=== PATIENT | male | born 1990 | race Caucasian/White ===

== ENCOUNTER → 2024-11-28 12:22 | Outpatient (ROUT) | payer BC, SELFPAY | LOC: LAB 12:23 | DX: D37.01 Neoplasm of uncertain behavior of lip (principal) | CPT/HCPCS: 87252 ==

== ENCOUNTER 2025-02-27 13:45 | Outpatient (RCR) | payer OTHER, SELFPAY ==
--- NOTE | 2025-01-13 16:29 | ST.OPIE ---
Visit Care Team Role Provider Type Dylan Barrett DO Primary Care Provider Non-Staff Specialty: Family Practice Address: [address], [place], [address] Email: Family Provider Specialty: Address: Phone: Fax: Email: Megan Jaime MD Attending Provider Physician Referring Provider Specialty: Dermatology Address: [address] [place] [address], [id number] Email: Speech-Language Pathology Initial Evaluation ROUTE SALES PERSON Motor Speech Evaluation Start: 01/13/25 15:13 Freq: Status: Active Protocol: Document 01/13/25 15:14 SS (Rec: 01/13/25 15:16 SS Desktop) Motor Speech Evaluation Session Time Visit Start Time 14:15 Visit Stop Time 14:45 Total Visit Minutes 30 Visit Information Visit Number 07/08 Plan of Care Dates 01/13/25-04/15/25 Insurance [employer] Preferred Information Setting Setting Outpatient Care Next Note Type Next Note Type Treatment Note Patient History Source: [employer] (JOSE ROBERT[employer]). 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 No significant prior medical history per pt report. 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 Plan for pt to begin course of radiation next week, though he is currently seeking a second opinion. Pt reported no changes to swallowing function. He endorsed mild dysarthria that has been improving, but is concerned it will worsen when he begins radiation treatment. 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 Referral Referring Physician Dr. Amparo Jaime Ph.D., M.D., [facility] Reason for Referral Dysarthria Mental Status Mental Status Alert,Responsive,Cooperative Subjective Observations Subjective Pt arrived to the session on time. He was motivated to participate and provided his case history. Oral Motor Lips Function Mild Impairment Observation at rest Intact b/l Pucker Intact b/l Retraction Intact b/l Alternating pucker/ Mildly reduced ROM and strength on left retraction Involuntary Movement None Tongue Function WNL Jaw Function WNL Soft Palate Function WNL Respiration/Phonation Diadochokinetic Rates P^ Duration per 3 sec. 15.6 reps Quality WNL T^ Duration per 3 sec. 15 reps Quality WNL K^ Duration per 3 sec. 16.8 reps Quality WNL P^T^K^ Duration per 3 sec. 10.2 reps Quality WNL Speech Intelligibility Standardized Tests Assessment Name(s) Conversation Phoneme Severity WNL Word Severity WNL Sentence Severity WNL Conversation Severity Mildly Impaired Awareness/Strategy Use Findings Details Motor Speech Mild Impairment Function Assessment Details Assessment Speech/voice evaluation results A motor speech and voice examination was administered to assess components of the pt?s motor speech system including respiration, phonation, articulation, resonance, and prosody. In addition, an oral mechanism exam was completed, and five salient features of neuromuscular function were also evaluated which include muscle strength, speech of movement, range of motion, and muscle tone. Pt also completed the Voice Handicap Index, measuring self-perception of voice. Cognitive-communication skills were assessed informally throughout the evaluation. Respiration Respiration was assessed by observing the pt?s breathing during speech tasks. Breath support was adequate during reading and functional speaking tasks. Phonation Loudness: adequate volume in conversation and during structured tasks. Pitch: WNL pitch range Quality: clear Maximum Phonation Time (MPT): 15.37 seconds = Below Average; Typically with no laryngeal pathology, adult males can sustain vowel sounds for between 22.6-34.6 seconds (Ifeanyi et al., 1987). MPT is the maximum time in seconds for which a person can sustain a vowel sound /a/ when produced on one deep breath at a relatively comfortable pitch and loudness. MPT is not a diagnostic of laryngeal pathology; however, is useful as an indicator of laryngeal pathology. To obtain the pt?s MPT, the pt was asked to take a deep breath and sustain the vowel sound ?ah? for as long as possible at a comfortable pitch and loudness on one exhalation, without straining. The best of three attempts at sustaining the vowel sound was used as the pt?s MPT. S/Z Ratio: 11.34/16.67 = 0.7 Below Average; Average = ~ 20-25 seconds for both phonemes equaling a ratio of 1. The /z/ shorter than /s/ = laryngeal impairment. Both / s/ and /z/ reduced = respiratory impairment. 1.4 or less is WNL (Isidoro & Sebastián, 1981). The s/z ratio is an assessment tool used as an indicator of potential laryngeal pathology. Using the s /z ratio, the pt is asked to sustain the ?s? sound ( voiceless) and the ?z? sound (voiced). These two values are then divided to obtain a numerical ration. The higher the figure, the greater the possibility that the person is experiencing difficulty with phonation. Articulation Articulation was assessed during diadochokinetic drills with Sequential Motion Rate (SMR) and Alternating Motion Rate (AMR) exercises, as well as during tasks of repetition and spontaneous speech. AMR testing, which is composed of rapid repetition of single consonant-vowel combination, exposed WNL rate, volume, and precision. During the SMR testing, which is a compilation of three consonant-vowel combinations produced sequentially, pt displayed WNL rate, volume, and precision. Puh = 5.2/second - Average Tuh = 5.0/second - Average Kuh = 5.6/second - Average Puh, Tuh, Kuh = 3.4/second - Average Articulation mildly reduced at the conversation level. Resonance Hyponasality and hypernasality were assessed by having the pt repeat two sentences with and without the nares occluded. Pt?s speech presented with neither. Prosody Prosody was assessed throughout the evaluation during various speaking tasks. Pt demonstrated good ability to vary stress and intonation and imitate different stress patterns produced by the ROUTE SALES PERSON. FEATURES OF NEUROMUSCULAR FUNCTION Muscle Strength: Demonstrated adequate labial and lingual strength during resistance tasks Speed of Movement: At the conversation level, speed of movement is judged to be adequate. Accuracy of Movement: In regards to speech production, accuracy is mildly reduced, particularly with labial phonemes (/p/, /b/). Range of Motion: ROM within normal limits. Muscle Tone: Muscle tone of all speech related musculature appeared adequate CRANIAL NERVE EXAM CN V (Trigeminal): Intact b/l CN VII (Facial): Intact b/l CN IX/X (Glossopharyngeal/Vagus): Intact b/l CN XII (Hypoglossal): Intact b/l VISUAL ANALOGUE SCALE The pt was asked to rate his perception of his voice on a visual analogue scale from 1-10, with 1 being ? unable to speak? and 10 being ?speech/voice prior to surgery.? The pt rated his current speech/voice to be an 8.5/10. 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 Pt?s mild dysarthria is characterized by mildly reduced precision with labial phonemes at the conversation level. Pt reports his speech function is very close to baseline and continues to improve, but has concerns about changes with upcoming radiation. Prognosis for improvement is good for stated goals pending cooperation and motivation. Improvement will be contingent upon pt compliance to the following recommendations. Prognosis Rehabilitation Excellent Potential Recommendations Treatment Yes Recommended Frequency 2-4 times a month Duration 2-3 months Therapy Recommendations are for speech therapy treatment for 5- Recommendations 6 visits to improve functional communication during activities of daily living, for the most independence, and best quality of life. Focus should be on increasing overall intelligibility in every day functional communication. Pt in agreement with these recommendations. 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 Patient will independently implement at least two compensatory speech strategies to increase speech intelligibility in conversation. 2. Patient will complete HEP for speech strategies for dysarthria to increase overall speech intelligibility per pt?s report. Pediatric Critical Care Nurse Goals 1. Patient will improve self-perception of speech/voice from a baseline of 8.5/10 following education and training in compensatory strategies. Patient/Family Education Education Described results of evaluation,Patient Understanding
--- NOTE | 2025-01-13 16:29 | ST.OPPOC ---
Physical, Occupational & Speech Therapy At [facility] Visit Care Team Role Provider Type Dylan Barrett DO Primary Care Provider Non-Staff Address: [address], [place], [address] Family Provider Address: Phone: Fax: Megan Jaime MD Attending Provider Physician Referring Provider Address: [address] [place] [address], [address] Speech Pathology Plan of Care Plan of Care Dates 01/13/25-04/15/[address] 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 No significant prior medical history per pt report. 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 Plan for pt to begin course of radiation next week, though he is currently seeking a second opinion. Pt reported no changes to swallowing function. He endorsed mild dysarthria that has been improving, but is concerned it will worsen when he begins radiation treatment. 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 Patient will independently implement at least two compensatory speech strategies to increase speech intelligibility in conversation. 2. Patient will complete HEP for speech strategies for dysarthria to increase overall speech intelligibility per pt?s report. Skilled Nursing Goals 1. Patient will improve self-perception of speech/voice from a baseline of 8.5/10 following education and training in compensatory strategies. Comment: Electronically Signed by: YAMILETH Alexander 01/13/25 4881 If you are in agreement with this Plan of Care, please return a signed and dated copy. I have reviewed this Plan of Care and certify that the skilled therapy services above are required to meet the patient?s needs. Physician Signature Date Printed Name and Credentials Clinical Instructor Signature Printed Name and Credentials
--- NOTE | 2025-01-13 16:33 | ST-OP ANOTE ---
Physical, Occupational & Speech Therapy At [facility] Speech Therapy Note POC sent to pt's PCP requesting signature if in agreement. PROPERTY CONTROLLER to follow up as needed.
--- NOTE | 2025-01-28 15:46 | ST.OPTN ---
Visit Care Team Role Provider Type Dylan Barrett DO Primary Care Provider Non-Staff Address: [address], [place], [address] Family Provider Address: Phone: Fax: Megan Jaime MD Attending Provider Physician Referring Provider Address: [facility] [place], [address] WEB MARKETING STRATEGIST Treatment Note WEB MARKETING STRATEGIST Treatment Note Start: 01/13/25 15:13 Freq: Status: Active Protocol: Document 01/28/25 15:24 SS (Rec: 01/28/25 15:46 SS Desktop) Speech Pathology Treatment Note Session Time Visit Start Time 12:15 Visit Stop Time 12:45 Total Visit Minutes 30 Visit Information Visit Number 2 Plan of Care Dates 01/13/25-04/15/25 Insurance [employer] Preferred Information Setting Treatment Setting Outpatient Care Visit Type Note Type Treatment Note Next Note Type Next Note Type Treatment Note General Information Patient History Vinh Etienne is a 34-year-old male referred for speech therapy evaluation due to concerns regarding dysarthria in the setting of 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 No significant prior medical history per pt report. 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 Plan for pt to begin course of radiation next week, though he is currently seeking a second opinion. Pt reported no changes to swallowing function. He endorsed mild dysarthria that has been improving, but is concerned it will worsen when he begins radiation treatment. His main goal for treatment is to maintain his speech quality and continue to work in [employer]. Subjective Identification Type Name Observations/Patient Pt arrived to the session on time. He was engaged and Presentation motivated throughout. Objective Short Term Goals 1. Patient will independently implement at least two compensatory speech strategies to increase speech intelligibility in conversation. 2. Patient will complete HEP for speech strategies for dysarthria to increase overall speech intelligibility per pt?s report. Prison Goals 1. Patient will improve self-perception of speech/voice from a baseline of 8.5/10 following education and training in compensatory strategies. Treatment Activities Education re: compensatory strategies for dysarthria and implementation of selected strategies during tongue twisters and in conversation. WEB MARKETING STRATEGIST provided recommendations on increasing speech clarity during sport broadcasting given pt questions. Discussed current medical management and POC and provided home practice. Assessment Patient Response to Good Treatment Rehab Potential Good Impairments Speech Identified Progress Towards Good Progress Goals Assessment of Improving Overall Progress Assessment of Facilitated conversation re: pt?s speech. Pt reported Improvement he had a soccer broadcast last week and thought his speech was fairly clear. He has been focusing on his speech and been cognizant of using speech strategies provided in last session at home and at work. He has had several additional consultations: re: radiology and decided not to pursue it. He had a biopsy of his lip done last week and may have another surgery, though is not certain. Given prompt, pt independently recalled speech clarity strategies for dysarthria provided in last session, identifying the following: speak in 3-5 word phrases, use a slower rate, exaggerate all sounds or syllables, and repeat or rephrase if listener does not understand. Recommended and provided modeling and verbal explanation of additional strategies including emphasizing labial sounds (ex: /p/, /b/, /m/), lengthening sounds that are challenging (?th? and /f/) to make them sound different from others, and saying one word at a time. 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 Also recommended pt record himself practicing broadcasting using the strategies to make modifications based on the recording. Pt in agreement with these recommendations. Tongue twister exercise implemented to target dysarthria to improve articulatory precision. Pt completed 20 tongue twisters while using the above strategies. He was able to produce 90% of them accurately, increasing to 100% given prompt to self- assess productions and re-try as needed. Recommended pt read the tongue twisters with use of compensatory strategies as part of HEP, which pt expressed understanding of. Pt participated throughout the session. He was receptive to education and recommendations provided. Will continue to target use of compensatory strategies for dysarthria in next session given pt progress with HEP. Plan to follow up in 2 weeks. Reviewed with Goals,Progress Being Made,Home Exercise Program Patient Patient/Caregiver Excellent Understanding Plan Amount of Therapy 2-3 Months Recommended Frequency of Once a Week Treatment Comment 2-4 times a month Length of Session 30 Minutes Therapeutic Contents Articulation Training,Client Education,Home Exercise Program,Intelligibility Provided Patient/ Home Exercise Program,Plan of Care,Questions/Concerns Caregiver Instruction Therapy Continue with Current Program Recommendations
--- NOTE | 2025-02-27 14:24 | ST.OPTN ---
Visit Care Team Role Provider Type Dylan Barrett DO Primary Care Provider Non-Staff Address: [address], [place], [address] Family Provider Address: Phone: Fax: Megan Jaime MD Attending Provider Physician Referring Provider Address: [address] [facility], [address] WATCH SUPERVISOR Treatment Note WATCH SUPERVISOR Treatment Note Start: 01/13/25 15:13 Freq: Status: Active Protocol: Document 02/27/25 14:17 MA (Rec: 02/27/25 14:24 MA Desktop) Speech Pathology Treatment Note Session Time Visit Start Time 13:45 Visit Stop Time 14:15 Total Visit Minutes 30 Visit Information Visit Number 3 Plan of Care Dates 01/13/25-04/15/25 Insurance [employer] Preferred Information Setting Treatment Setting Outpatient Care Visit Type Note Type Treatment Note Next Note Type Next Note Type Treatment Note General Information Patient History Vinh Etienne is a 34-year-old male referred for speech therapy evaluation due to concerns regarding dysarthria in the setting of 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 No significant prior medical history per pt report. 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 Plan for pt to begin course of radiation next week, though he is currently seeking a second opinion. Pt reported no changes to swallowing function. He endorsed mild dysarthria that has been improving, but is concerned it will worsen when he begins radiation treatment. His main goal for treatment is to maintain his speech quality and continue to work in [employer]. Subjective Identification Type Name Observations/Patient Pt arrived to the session on time. He was engaged and Presentation motivated throughout. Objective Short Term Goals 1. Patient will independently implement at least two compensatory speech strategies to increase speech intelligibility in conversation. 2. Patient will complete HEP for speech strategies for dysarthria to increase overall speech intelligibility per pt?s report. Senior Living Goals 1. Patient will improve self-perception of speech/voice from a baseline of 8.5/10 following education and training in compensatory strategies. Treatment Activities Education re: compensatory strategies for dysarthria and implementation of selected strategies during conversation. WATCH SUPERVISOR provided recommendations on increasing speech clarity during sport broadcasting given pt questions. Discussed current medical management and POC. Assessment Patient Response to Good Treatment Rehab Potential Good Impairments Speech Identified Progress Towards Good Progress Goals Assessment of Improving Overall Progress Assessment of Facilitated conversation re: pt?s speech. Pt reported Improvement he challenged himself last week and broadcasted up to 9 games and reports his speech sounded clear. He has been focusing on his speech and been cognizant of using speech strategies provided in last session at home and at work. Given prompt, pt independently recalled speech clarity strategies for dysarthria provided in last session, identifying the following: speak in 3-5 word phrases, use a slower rate, exaggerate all sounds or syllables, and repeat or rephrase if listener does not understand Recommended pt use these strategies during conversations at home and when broadcasting sports games at work while utilizing visual aid (sheet with strategies written at prominent place) as art pf HEP. Also recommended pt record himself practicing broadcasting using the strategies to make modifications based on the recording. Pt in agreement with these recommendations. Pt participated throughout the session. He was receptive to education and recommendations provided. He reports people have been saying he sounds better and they can?t tell a difference from before his surgery. 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 ST educated Pt on resonance voice therapy tasks and encouraged Pt to practice resonance voice exercises prior to broadcasting to bring forward focus up into face vs. throat. Pt verbalized understanding. ST facilitated conversation with Pt in regards to discharging from therapy this date d/t him reporting improvements with his speech and independence with use of speaking compensatory strategies. ST educated Pt on the last day of his POC being 04/15/25 and to call and make an appointment from now until then if any changes or questions arise. Pt verbalized understanding. Reviewed with Goals,Progress Being Made,Home Exercise Program Patient Patient/Caregiver Excellent Understanding Plan Amount of Therapy 2-3 Months Recommended Frequency of Once a Week Treatment Comment 2-4 times a month Length of Session 30 Minutes Therapeutic Contents Articulation Training,Client Education,Home Exercise Program,Intelligibility Provided Patient/ Home Exercise Program,Plan of Care,Questions/Concerns Caregiver Instruction Therapy Continue with Current Program Recommendations
--- NOTE | 2025-04-23 12:06 | ST.OPDS ---
Visit Care Team Role Provider Type Dylan Barrett DO Primary Care Provider Non-Staff Address: [address], [place], [address] Family Provider Address: Phone: Fax: Megan Jaime MD Attending Provider Physician Referring Provider Address: [address] [place], [address] AGILITY INSTRUCTOR Treatment Note AGILITY INSTRUCTOR Treatment Note Start: 01/13/25 15:13 Freq: Status: Active Protocol: Document 04/23/25 12:03 SS (Rec: 04/23/25 12:06 SS DESKTOP) Speech Pathology Treatment Note Visit Information Visit Number 3 Plan of Care Dates 01/13/25-04/15/25 Insurance [employer] Preferred Information Setting Treatment Setting Outpatient Care Visit Type Note Type Discharge Summary General Information Patient History Vinh Etienne is a 34-year-old male referred for speech therapy evaluation due to concerns regarding dysarthria in the setting of 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 No significant prior medical history per pt report. 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 Plan for pt to begin course of radiation next week, though he is currently seeking a second opinion. Pt reported no changes to swallowing function. He endorsed mild dysarthria that has been improving, but is concerned it will worsen when he begins radiation treatment. 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 Objective Short Term Goals 1. Patient will independently implement at least two compensatory speech strategies to increase speech intelligibility in conversation. 04/23/25: discontinue goal. 2. Patient will complete HEP for speech strategies for dysarthria to increase overall speech intelligibility per pt?s report. 04/23/25: discontinue goal. Disk Sander Goals 1. Patient will improve self-perception of speech/voice from a baseline of 8.5/10 following education and training in compensatory strategies. 04/23/25: discontinue goal. Treatment Activities Pt was seen for 3 sessions. Treatment included education re: compensatory strategies for dysarthria and implementation of selected strategies during conversation. AGILITY INSTRUCTOR provided recommendations on increasing speech clarity during sport broadcasting given pt questions. Assessment Patient Response to Good Treatment Rehab Potential Good Impairments Speech Identified Progress Towards Good Progress,Appropriate for Discharge Goals Assessment of Improving Overall Progress Assessment of As of last treatment session: Facilitated conversation Improvement re: pt?s speech. Pt reported he challenged himself last week and broadcasted up to 9 games and reports his speech sounded clear. He has been focusing on his speech and been cognizant of using speech strategies provided in last session at home and at work. Given prompt, pt independently recalled speech clarity strategies for dysarthria provided in last session, identifying the following: speak in 3-5 word phrases, use a slower rate, exaggerate all sounds or syllables, and repeat or rephrase if listener does not understand Recommended pt use these strategies during conversations at home and when broadcasting sports games at work while utilizing visual aid (sheet with strategies written at prominent place) as art pf HEP. Also recommended pt record himself practicing broadcasting using the strategies to make modifications based on the recording. Pt in agreement with these recommendations. Pt participated throughout the session. He was receptive to education and recommendations provided. He reports people have been saying he sounds better and they can?t tell a difference from before his surgery. Pt reports some pain in lip and throat after deputy [place] 9 and asked for ways to manage that. 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 ST educated Pt on resonance voice therapy tasks and encouraged Pt to practice resonance voice exercises prior to broadcasting to bring forward focus up into face vs. throat. Pt verbalized understanding. ST facilitated conversation with Pt in regards to discharging from therapy this date d/t him reporting improvements with his speech and independence with use of speaking compensatory strategies. ST educated Pt on the last day of his POC being 04/15/25 and to call and make an appointment from now until then if any changes or questions arise. Pt verbalized understanding. Pt discharged at this time. Pt had expressed satisfaction with current speech function during his last treatment session. He is aware that he may request a new referral from PCP as needed. Reviewed with Goals,Progress Being Made,Home Exercise Program Patient Patient/Caregiver Excellent Understanding Plan Amount of Therapy No Further Therapy Recommended Frequency of No Further Therapy Treatment Therapeutic Contents Articulation Training,Client Education,Home Exercise Program,Intelligibility Provided Patient/ Home Exercise Program,Plan of Care,Questions/Concerns Caregiver Instruction Therapy Discharge to Home Exercise Program,Discharge from Recommendations Speech Therapy
== END 2025-04-23 13:42 | disposition home or self-care (01) ==
LOC: SP 13:45
PROVIDERS: PCP Family Medicine; Referring Provider Dermatology; Visit Provider Dermatology
DX: C00.1 Malignant neoplasm of external lower lip (principal)
CPT/HCPCS: 92507; 92522